=== PATIENT | male | born 1945 | race Caucasian/White ===

== ENCOUNTER 2017-04-08 13:45 | Emergency (ER) | payer MEDICARE, BC ==
[2017-04-08 13:49] VITALS: BP 122/70
--- NOTE | 2017-04-08 14:51 | ED ---
Lower Extremity - HPI Summary HPI Summary: 62M presents with right ankle pain. He was pushing his 4 hirsch up a hill and felt a pop. He states his ankle feels looser and that he has a ball of muscle in his calf. He is able to ambulate. He denies any pain. He denies any numbness or tingling. He denies any previous injury to the area. He denies any injury to the area currently. - History of Current Complaint Chief Complaint: EDExtremityLower Stated Complaint: RT LEG INJURY Time Seen by Provider: 04/08/17 14:26 Pain Intensity: 3 - Allergies/Home Medications Allergies/Adverse Reactions: Allergies Allergy/AdvReac Type Severity Reaction Status Date / Time No Known Allergies Allergy Verified 01/15/15 12:13 PMH/Surg Hx/FS Hx/Imm Hx Endocrine/Hematology History: Denies: Hx Diabetes, Hx Thyroid Disease Cardiovascular History: Reports: Hx Hypertension - ON MEDICATION FOR Sensory History: Reports: Hx Cataracts - BILATERAL Denies: Hx Contacts or Glasses Opthamlomology History: Reports: Hx Cataracts - BILATERAL Denies: Hx Contacts or Glasses - Surgical History Surgery Procedure, Year, and Place: RIGHT SHOULDER ROTATOR CUFF REPAIR. LEFT SHOULDER ROTATOR CUFF REPAIR. LEFT AND RIGHT CARPAL TUNNEL RELEASE Hx Anesthesia Reactions: No Infectious Disease History: No Infectious Disease History: Denies: Traveled Outside the [place] in Last 30 Days - Family History Known Family History: Positive: Cardiac Disease - Social History Alcohol Use: Rare Substance Use Type: Reports: None Smoking Status (MU): Never Smoked Tobacco Review of Systems Negative: Fever Negative: Chest Pain Negative: Shortness Of Breath Positive: Myalgia - right posterior ankle pain All Other Systems Reviewed And Are Negative: Yes Physical Exam Triage Information Reviewed: Yes Vital Signs On Initial Exam: Initial Vitals Temp Pulse Resp BP Pulse Ox 96.9 F 67 20 122/70 95 04/08/17 13:47 04/08/17 13:47 04/08/17 13:47 04/08/17 13:47 04/08/17 13:47 Vital Signs Reviewed: Yes Appearance: Positive: Well-Appearing Skin: Positive: Warm, Dry Head/Face: Positive: Normal Head/Face Inspection Eyes: Positive: Normal, Conjunctiva Clear Respiratory/Lung Sounds: Positive: Clear to Auscultation, Breath Sounds Present Cardiovascular: Positive: Normal, RRR Musculoskeletal: Positive: Strength/ROM Intact - right ankle, Other - pos addison squeeze, muscle felt in lower calf, good pulses, capillary refill< 2 secs Procedures - Splinting Location: right leg Hand-Made Type: fiberglass Splint: posterior walking Pre-Proc Neuro Vasc Exam: normal Post-Proc Neuro Vasc Exam: normal Diagnostics - Vital Signs Vital Signs Temp Pulse Resp BP Pulse Ox 04/08/17 13:49 96.7 F 66 20 122/70 97 04/08/17 13:47 96.9 F 67 20 122/70 95 - Laboratory Lab Statement: Any lab studies that have been ordered have been reviewed, and results considered in the medical decision making process. Lower Extremity Course/Dx - Course Course Of Treatment: 62M presents with right ankle pain. He felt a pop. He states his ankle feels looser and that he has a ball of muscle in his calf. He is able to ambulate. He denies any pain. He denies any injury to the area currently so did not get an xray. has pos addison squeeze. neurovascular intact. plantar flexion posterior splint placed, called dr thayer to make sure would have follow up. patient understands and agrees with plan. - Diagnoses Differential Diagnosis/HQI/PQRI: Positive: Sprain, Strain, Other - achilles tendon rupture Provider Diagnoses: Rupture of right Achilles tendon Discharge - Discharge Plan Condition: Good Disposition: HOME Patient Education Materials: Achilles Tendon Rupture (ED) Referrals: Leno Carlos MD [Medical Doctor] - Esdras Thayer MD [Medical Doctor] - Additional Instructions: Ice on area Keep splint on area and use crutches Take Tylenol for pain every 6 hours Follow up with ortho Return to ED if develop any new or worsening symptoms
== END 2017-04-08 14:58 | disposition home or self-care (01) ==
LOC: ED 13:45
DX: S86.011A Strain of right Achilles tendon, initial encounter (principal); M25.571 Pain in right ankle and joints of right foot; X50.9XXA Other and unspecified overexertion or strenuous movements or postures, initial encounter; Y93.9 Activity, unspecified; Y92.9 Unspecified place or not applicable
CPT/HCPCS: 99281

== ENCOUNTER 2017-04-17 07:00 | Day surgery (SDC) | payer MEDICARE, BC ==
[~2017-04-17 07:00] MED LIST: Buffered Lidocaine 0.9% SYRIN* 5 ML/SYR SYRINGE INTRADERM ONE; Buffered Lidocaine 0.9% SYRIN* 5 ML/SYR SYRINGE ONE; Dexamethasone IV* 4 MG/ML 1 ML (4 MG) IV SLOW PU ONE; Dexamethasone IV* 4 MG/ML 1 ML (4 MG) ONE; Famotidine IV* 10 MG/ML 2 ML (20 mg) IV SLOW PU ONE; Famotidine IV* 10 MG/ML 2 ML (20 mg) ONE; Sodium Citrate/Citric Acid* 15 ML UDC PO ONE
[2017-04-17] MEDS ORDERED: fentaNYL* 50 MCG/ML 2 ML VIAL (100 MCG VIAL) IV PRN (08:04)
[2017-04-17] MEDS ORDERED: Ondansetron INJ* 2 MG/ML VIAL IV PRN (08:04)
[2017-04-17] MEDS ORDERED: DiMENhydriNATE IV* 50 MG/ML VIAL IV PUSH PRN (08:04)
[2017-04-17] MEDS ORDERED: oxyCODONE/Acetamin 5/325 MG* TAB PO PRN (08:04)
[2017-04-17] MEDS ORDERED: HYDROmorphone* 1 MG/ML 1 ML SYR IV PRN (08:04)
[2017-04-17] MEDS ORDERED: Midazolam* 1 MG/ML 5 ML VIAL (5 MG) ONE (08:22)
[2017-04-17] MEDS ORDERED: Ondansetron INJ* 2 MG/ML VIAL ONE (08:24)
[2017-04-17] MEDS ORDERED: Propofol* 10 MG/ML 20 ML BTL IV PUSH ONE (08:24)
[2017-04-17] MEDS ORDERED: Ketorolac INJ* 30 MG/ML 1 ML VIAL ONE (08:24)
[2017-04-17] MEDS ORDERED: ceFAZolin 2 GM PREMIX(*) 2 GM/50 ML BAG IVPB ONE (08:30)
[2017-04-17 14:17] VITALS: BP 126/69
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
== END 2017-04-17 15:18 | disposition home or self-care (01) ==
LOC: OR 07:00
PROVIDERS: ATTEND Orthopaedic Surgery
DX: S86.011A Strain of right Achilles tendon, initial encounter (principal); R73.01 Impaired fasting glucose; I10 Essential (primary) hypertension; M51.16 Intervertebral disc disorders with radiculopathy, lumbar region; X50.0XXA Overexertion from strenuous movement or load, initial encounter; Y92.096 Garden or yard of other non-institutional residence as the place of occurrence of the external cause
CPT/HCPCS: J0690; J1100; J1885; J2250; J2405; J2704

== ENCOUNTER 2017-05-02 19:50 | Emergency (ER) | payer MEDICARE, BC ==
--- NOTE | 2017-05-02 21:11 | ED ---
Lower Extremity - HPI Summary HPI Summary: 72M presents with cast on right foot being too tight. He had surgery on 04/[address] dutta for an Achilles tendon rupture. He has a new case placed on 05/03. He states the area is irritating and he will cut it off himself. He denies any numbness or tingling. He denies any excessive pain. He has been keeping it elevated - History of Current Complaint Chief Complaint: EDExtremityLower Stated Complaint: CAST ON RIGHT LEG GETTING TIGHT Time Seen by Provider: 05/02/17 20:30 Pain Intensity: 5 - Allergies/Home Medications Allergies/Adverse Reactions: Allergies Allergy/AdvReac Type Severity Reaction Status Date / Time No Known Allergies Allergy Verified 04/17/17 07:13 PMH/Surg Hx/FS Hx/Imm Hx Endocrine/Hematology History: Denies: Hx Diabetes, Hx Thyroid Disease Cardiovascular History: Reports: Hx Hypertension - CONTROLLED WITH MED Denies: Hx Pacemaker/ICD Sensory History: Reports: Hx Cataracts - BILAT. Denies: Hx Contacts or Glasses, Hx Hearing Aid Opthamlomology History: Reports: Hx Cataracts - BILAT. Denies: Hx Contacts or Glasses Psychiatric History: Denies: Hx Panic Disorder - Surgical History Surgery Procedure, Year, and Place: RIGHT SHOULDER ROTATOR CUFF REPAIR, [place]. LEFT SHOULDER ROTATOR CUFF REPAIR, [place]. LEFT AND RIGHT CARPAL TUNNEL RELEASE, [place] Hx Anesthesia Reactions: No Infectious Disease History: No Infectious Disease History: Denies: Traveled Outside the [place] in Last 30 Days - Family History Known Family History: Positive: Cardiac Disease - Social History Alcohol Use: Rare Alcohol Amount: 1-2 YEAR Substance Use Type: Reports: None Smoking Status (MU): Never Smoked Tobacco Review of Systems Negative: Fever Negative: Chest Pain Negative: Shortness Of Breath Positive: Other - cast discomfort All Other Systems Reviewed And Are Negative: Yes Physical Exam Triage Information Reviewed: Yes Vital Signs On Initial Exam: Initial Vitals Temp Pulse Resp BP Pulse Ox 97.5 F 65 18 126/63 97 05/02/17 20:01 05/02/17 20:01 05/02/17 20:01 05/02/17 20:01 05/02/17 20:01 Vital Signs Reviewed: Yes Appearance: Positive: Well-Appearing Skin: Positive: Warm, Dry Head/Face: Positive: Normal Head/Face Inspection Eyes: Positive: Normal, Conjunctiva Clear Respiratory/Lung Sounds: Positive: Clear to Auscultation, Breath Sounds Present Cardiovascular: Positive: Normal, RRR Musculoskeletal: Positive: Other - capillary refill<2 secs, no swelling noted in toes, cast from midcalf to toes Procedures - Procedure Summary Procedure Summary: split cast on right foot with cast saw Diagnostics - Vital Signs Vital Signs Temp Pulse Resp BP Pulse Ox 05/02/17 20:22 97 F 76 16 126/63 98 05/02/17 20:01 97.5 F 65 18 126/63 97 - Laboratory Lab Statement: Any lab studies that have been ordered have been reviewed, and results considered in the medical decision making process. Lower Extremity Course/Dx - Course Course Of Treatment: 72M presents with cast on right foot being too tight. He had surgery on 04/[address] dutta for an Achilles tendon rupture. He has a new case placed on 05/03. He states the area is irritating and he will cut it off himself. He denies any numbness or tingling. spoke with dr berman who said can split the cast which did with cast saw. placed margo wrap around cast. told to give ortho a call Thursday. patient understands and agrees with plan - Diagnoses Differential Diagnosis/HQI/PQRI: Positive: Fracture (Closed), Sprain, Strain, Other - cast discomfort Provider Diagnoses: Cast discomfort Discharge - Discharge Plan Condition: Good Disposition: HOME Referrals: Karyn Warren MD [Primary Care Provider] - Additional Instructions: Elevate Give ortho a call on Thursday Return to ED if develop any new or worsening symptoms
[2017-05-02 21:21] VITALS: BP 120/69
== END 2017-05-02 21:21 | disposition home or self-care (01) ==
LOC: ED 19:50
DX: Z47.89 Encounter for other orthopedic aftercare (principal); I10 Essential (primary) hypertension
CPT/HCPCS: 99282